=== PATIENT | male | born 1970 | race Caucasian/White ===

== ENCOUNTER 2017-08-31 12:44 | Emergency (ER) | payer BC ==
[~2017-08-31] VITALS: Ht 188 cm; Wt 133.8 kg
[~2017-08-31 12:44] MED LIST: NORCO 5-325 TA1 EAC1 PO
[2017-08-31] MEDS ORDERED: BACTRIM DS TAB1 EACH PO (13:05)
[2017-08-31] MEDS ORDERED: NORCO 5-325 TA1 EAC1 PO (13:39)
[2017-08-31] MEDS ORDERED: CLEOCIN HCL150 MG PO (13:39)
[2017-08-31] MEDS ORDERED: PREDNISONE 10 M10 M1 PO (13:39)
[2017-08-31 13:44] VITALS: BP 140/74
== END 2017-08-31 13:45 | disposition home or self-care (01) ==
LOC: M.ERS 12:44
DX: S81.801A Unspecified open wound, right lower leg, initial encounter (principal); X58.XXXA Exposure to other specified factors, initial encounter; Y93.89 Activity, other specified; Y92.89 Other specified places as the place of occurrence of the external cause; Y99.8 Other external cause status